=== PATIENT | female | born 1970 | race Two or more races ===

== ENCOUNTER 2023-06-10 22:46 | Emergency (ER) | payer OTHER ==
[~2023-06-10] VITALS: Ht 157.5 cm; Wt 61.7 kg
[2023-06-10 23:45] VITALS: TEMP 98.1
[2023-06-11] MEDS ORDERED: IV NS 0.9% 1,000 ML BAG IV ONE (01:00)
[2023-06-11 01:22] VITALS: BP 118/67; O2SAT 100
== END 2023-06-11 01:20 | disposition left against medical advice (07) ==
LOC: ER 22:47
DX: F41.9 Anxiety disorder, unspecified (principal); R06.00 Dyspnea, unspecified; R42 Dizziness and giddiness